=== PATIENT | male | born 1940 | race African-American/Black ===

== ENCOUNTER 2022-01-21 10:05 | Emergency (ER) | payer MEDICARE, OTHER | END 2022-01-21 11:45 | disposition home or self-care (01) | LOC: CSHERS 10:05 | DX: Z00.00 Encounter for general adult medical examination without abnormal findings (principal); E11.9 Type 2 diabetes mellitus without complications; E78.5 Hyperlipidemia, unspecified; I10 Essential (primary) hypertension | CPT/HCPCS: 99283 ==

== ENCOUNTER 2023-01-06 11:59 | Emergency (ER) | payer MEDICARE, OTHER ==
[2023-01-06] MEDS ORDERED: Ondansetron ODT 4 MG TAB ONE (12:24)
== END 2023-01-06 15:07 | disposition home or self-care (01) ==
LOC: CSHERS 11:59
DX: R11.10 Vomiting, unspecified (principal); E78.5 Hyperlipidemia, unspecified; I10 Essential (primary) hypertension
CPT/HCPCS: 36416; 71045; 93005; Q0162

== ENCOUNTER 2023-05-02 19:55 | Emergency (ER) | payer MEDICARE, MEDICAID ==
[2023-05-02 21:11] LABS: Bilirubin Neg (Negative); Blood, Urine 10 (Negative); Clarity Slightly Cloudy (Clear); Glucose, Urine (Dipstick) 100 mg/dL (Negative); Ketone, Urine Negative (Negative); Leukocyte 500 (Negative); Nitrite Negative (Negative); Protein, Urine (Dipstick) 15 mg/dl (Neg-Trace)
[2023-05-02 21:30] LABS: CAUTI Indications for Culture Alt mental st,lethar; RBC/HPF 0-3 HPF (0-3); Squamous Epithelial 0-3 HPF (0-3)
[2023-05-02] MEDS ORDERED: Fluconazole 100 MG TAB PO SCH (21:30)
[2023-05-02 21:31] LABS: Bacteria/HPF Rare-Few HPF (None Seen)
[2023-05-02 21:32] LABS: Urine Culture Reflex No No
== END 2023-05-02 22:46 | disposition home or self-care (01) ==
LOC: CSHERS 19:55
DX: B37.42 Candidal balanitis (principal); T83.511A Infection and inflammatory reaction due to indwelling urethral catheter, initial encounter; E78.5 Hyperlipidemia, unspecified; I10 Essential (primary) hypertension; Z96.0 Presence of urogenital implants
CPT/HCPCS: 81001; 99283